=== PATIENT | female | born 2000 | race Caucasian/White ===

== ENCOUNTER 2019-06-10 19:20 | Emergency (ER) | payer OTHER ==
[~2019-06-10] VITALS: Ht 144.8 cm; Wt 68.5 kg
[2019-06-10 19:50] VITALS: BP 135/86
--- NOTE | 2019-06-10 19:59 | NUR ---
PT AMBULATED TO ER BED 06
--- NOTE | 2019-06-10 20:02 | NUR ---
18 Y/O F PRESENTS TO ER C/O MID STERNAL CHEST PAIN X 1 HOUR AGO. PAIN 6/10, HEAVINESS/SHARP PAIN, CONSTANT. VSS. DENIES SHORTNESS OF BREATH. DENIES N/V/D. HOB ELEVATED, BED IN LOWEST POSITION, BEDRAIL UP X1. WAITING FOR ERMD TO EVALUATE PT. ALLERGIES: NKA MED HX: NONE
[2019-06-10] MEDS ORDERED: IBUPROFEN 600 MG TAB PO ONE (20:05)
[2019-06-10] MEDS ORDERED: LORazepam 0.5 MG TAB PO ONE (20:05)
[2019-06-10 20:58] VITALS: BP 141/69
--- NOTE | 2019-06-10 20:58 | NUR ---
Patient discharged with v/s stable. Pt encouraged to rest, relaxation, and medication to help with stress. Written and verbal after care instructions given and explained. Patient verbalized understanding. Ambulatory with steady gait. All questions addressed prior to discharge. Advised to follow up with PMD in 2-3 days.
== END 2019-06-10 20:58 | disposition home or self-care (01) ==
LOC: MED 19:20
DX: F41.9 Anxiety disorder, unspecified (principal); M94.0 Chondrocostal junction syndrome [Tietze]
CPT/HCPCS: 99284